=== PATIENT | male | born 1990 ===

== ENCOUNTER 2021-01-10 14:22 | Emergency (ER) | payer MEDICAID ==
[~2021-01-10] VITALS: Ht 172.7 cm; Wt 90.0 kg
[2021-01-10 14:34] VITALS: BP 110/80; Ht 172.7 cm; Wt 90.0 kg
== END 2021-01-10 15:18 | disposition home or self-care (01) ==
LOC: D.ER 14:22
DX: Z48.02 Encounter for removal of sutures (principal)